=== PATIENT | female | born 1995 | race Caucasian/White ===

== ENCOUNTER 2016-08-11 21:09 | Emergency (ER) | payer OTHER | END 2016-08-11 22:22 | disposition home or self-care (01) | LOC: ER 21:09 | DX: G43.909 Migraine, unspecified, not intractable, without status migrainosus (principal); F17.210 Nicotine dependence, cigarettes, uncomplicated; Z88.1 Allergy status to other antibiotic agents | CPT/HCPCS: 96374; 96375; J1885; J2765 ==